=== PATIENT | male | born 1995 ===

== ENCOUNTER 2017-01-01 16:42 | Emergency (ER) | payer OTHER ==
[2017-01-01 16:56] VITALS: BP 156/97; PULSE 115; RESP 20; TEMP 98.6; O2SAT 99
== END 2017-01-01 18:01 | disposition home or self-care (01) ==
LOC: ED 16:42
DX: J30.9 Allergic rhinitis, unspecified (principal)
CPT/HCPCS: 71020; 99282

== ENCOUNTER 2017-01-28 15:55 | Emergency (ER) | payer OTHER ==
[2017-01-28 16:59] LABS: BASOPHILS % (AUTO) 0 % (0-3); EOSINOPHILS % (AUTO) 0 % (0-9); HEMATOCRIT 46 % (39-53); MEAN CORPUSCULAR HGB CONC 33.9 gm/dl (32.0-36.0); MEAN CORPUSCULAR VOLUME 89 fL (80-100); MONOCYTES % (AUTO) 6.8 % (0-12)
[2017-01-28 17:20] LABS: ALBUMIN 4.5 gm/dl (3.4-5.0); ALT 25 IU/L (14-63); CALCIUM 9.1 mg/dl (8.5-10.1); GLOM FILT RATE 87 mL/min (>60); POTASSIUM 3.7 mMol/L (3.5-5.1); SODIUM 141 mMol/L (136-145); THYROID STIMULATING HORMONE 0.547 uIU/ml (0.358-3.740)
[2017-01-28 18:17] LABS: APPEARANCE,URINE Clear; BILIRUBIN,URINE 1+ (NEGATIVE); COLOR,URINE Dark yellow; GLUCOSE, URINE (UA) TRACE (NEGATIVE); KETONES,URINE TRACE (NEGATIVE); LEUKOCYTE ESTERASE ,URINE NEGATIVE (NEGATIVE); NITRATE,URINE NEGATIVE (NEGATIVE); OCCULT BLOOD,URINE NEGATIVE (NEG-TRACE); UROBILINOGEN,URINE 0.2 (0.2-1.0 EU)
[2017-01-28 18:25] LABS: ICTOTEST,URINE NEGATIVE (NEGATIVE)
[2017-01-28 18:26] LABS: AMPHETAMINES NEGATIVE (NEGATIVE); METHADONE NEGATIVE (NEGATIVE); OPIATES(OP13) NEGATIVE (NEGATIVE); OXYCODONE(OXY) NEGATIVE (NEGATIVE); PROPOXYPHENE(PPX) NEGATIVE (NEGATIVE); RBC,URINE 0-2 (0-3AV/HPF); TRICYCLIC ANTIDEPRESSANTS NEGATIVE (NEGATIVE); WBC,URINE 0-2 (0-5AV/HPF)
[2017-01-28 19:15] VITALS: RESP 18
[2017-01-28 23:54] VITALS: BP 131/77; PULSE 59; TEMP 97.6; O2SAT 100
== END 2017-01-29 01:00 | disposition short-term general hospital (02) ==
LOC: ED 15:55
DX: F33.3 Major depressive disorder, recurrent, severe with psychotic symptoms (principal); R45.851 Suicidal ideations
CPT/HCPCS: 36415; 80053; 80305; 80307; 81001; 84443; 85025; 99284

== ENCOUNTER 2017-10-25 14:42 | Emergency (ER) | payer OTHER ==
[2017-10-25 15:04] VITALS: BP 136/80; PULSE 86; RESP 20; TEMP 96.6; O2SAT 95
== END 2017-10-25 15:15 | disposition home or self-care (01) ==
LOC: ED 14:42
DX: J30.9 Allergic rhinitis, unspecified (principal)
CPT/HCPCS: 99282

== ENCOUNTER 2017-11-13 18:31 | Emergency (ER) | payer OTHER ==
[2017-11-13 18:51] VITALS: RESP 16; TEMP 97.2
[2017-11-13 19:52] VITALS: BP 149/88; PULSE 63; O2SAT 96
== END 2017-11-13 19:47 | disposition home or self-care (01) ==
LOC: ED 18:31
DX: J30.9 Allergic rhinitis, unspecified (principal); Z87.891 Personal history of nicotine dependence
CPT/HCPCS: 99282

== ENCOUNTER 2018-08-27 18:55 | Emergency (ER) | payer BC, OTHER ==
[2018-08-27] MEDS ORDERED: SODIUM CHLORIDE 0.9% 1000ML 1,000 ML IV ONE (19:04)
[2018-08-27 19:12] VITALS: RESP 20
[2018-08-27 19:43] LABS: HEMOGLOBIN 15.1 gm/dl (13.5-17.7); MEAN CORPUSCULAR HEMOGLOBIN 28.3 pg (27.0-32.0); MEAN CORPUSCULAR HGB CONC 33.3 gm/dl (32.0-36.0)
[2018-08-27 19:55] VITALS: BP 148/77; PULSE 82; TEMP 97.9; O2SAT 97
[2018-08-27 19:58] LABS: CALCIUM 9.4 mg/dl (8.5-10.1); CARBON DIOXIDE 22.1 mEq/L (21-32); CREATININE 1.35 mg/dl (0.80-1.30); MAGNESIUM 1.4 mg/dl (1.8-2.4)
[2018-08-27] MEDS ORDERED: POTASSIUM CHLORIDE 10 MEQ TER PO ONE (20:36)
[2018-08-27] MEDS ORDERED: MAGNESIUM OXIDE 400 MG TAB PO SCH (20:45)
[2018-08-27] MEDS: SODIUM CHLORIDE 0.9% 1000ML 1,000 ML IV SCH ×2 (20:45→21:25)
[2018-08-27] MEDS ORDERED: MAGNESIUM OXIDE 400 MG TAB ONE (20:49)
[2018-08-27] MEDS ORDERED: POTASSIUM CHLORIDE 10 MEQ TER ONE (20:51)
[2018-08-27] MEDS ORDERED: ONDANSETRON HCL 4 MG/2 ML SOL IV ONE (20:58)
[2018-08-27] MEDS ORDERED: ONDANSETRON HCL 4 MG/2 ML SOL ONE (20:59)
== END 2018-08-27 23:05 | disposition home or self-care (01) ==
LOC: ED 18:55
DX: T67.5XXA Heat exhaustion, unspecified, initial encounter (principal)
CPT/HCPCS: 36415; 80048; 82550; 83735; 85027; 96365; 96366; 96374; 99283; 99285; J2405; A9270-GY